=== PATIENT | female | born 1970 ===

== ENCOUNTER 2025-07-28 09:00 | Day surgery (SDC) | payer OTHER ==
[2025-07-21 13:20] VITALS: BP 139/85
[2025-07-21 14:38] LABS: ALT/SGPT 31.0 U/L (12-78); AST/SGOT 19.0 U/L (15-37); BILIRUBIN TOTAL 0.58 mg/dL (0.3-1.2); BUN CREA RATIO 20.0 (7.0-25.0); CREATININE SERUM 0.64 mg/dL (0.55-1.02); GFR 96.7; GLOBULINA 3.6 G/DL (2.4-3.5); GLUCOSE FASTING 85.0 mg/dL (65-100); OSMOLALITY SERUM 281.0 MOSM/KG (275-295)
[~2025-07-28] VITALS: Ht 160 cm; Wt 111.1 kg
[~2025-07-28 09:00] MED LIST: GLIMEPIRIDE4 MG; [UNRECOGNIZED DRUG - OTHER]
[2025-07-28] MEDS ORDERED: POVIDONE-IODINE 118 ML BOTT TOP ONE (12:41)
[2025-07-28] MEDS ORDERED: CHLORHEXIDINE GLUCONATE 120 ML BOTTLE TOP ONE (12:41)
[2025-07-28] MEDS ORDERED: TYLENOL ARTHRI650 MG PO (15:21)
== END 2025-07-28 17:50 | disposition home or self-care (01) ==
LOC: CIR.AMB 09:00
PROVIDERS: ATTEND Obstetrics & Gynecology Gynecology
DX: N80.03 Adenomyosis of the uterus (principal); N95.0 Postmenopausal bleeding; N72 Inflammatory disease of cervix uteri